=== PATIENT | female | born 2000 | race Asian ===

== ENCOUNTER → 2023-08-18 | Outpatient (CLI) | payer OTHER ==
[2023-08-18 17:23] LABS: PROGESTERONE 32.72 NG/ML
[2023-08-18 17:33] LABS: ESTRADIOL 99.4 PG/ML
== END ==
LOC: M LAB 16:26
PROVIDERS: ATTEND Obstetrics & Gynecology Reproductive Endocrinology
DX: Z31.41 Encounter for fertility testing (principal)

== ENCOUNTER → 2023-08-25 | Outpatient (CLI) | payer OTHER ==
[2023-08-25 08:19] LABS: HCG, SERUM QUANTITATIVE < 2.6 MIU/ML (<4.2)
[2023-08-25 08:23] LABS: PROGESTERONE 11.12 NG/ML
== END ==
LOC: M LAB 07:11
PROVIDERS: ATTEND Obstetrics & Gynecology Reproductive Endocrinology
DX: Z32.00 Encounter for pregnancy test, result unknown (principal)

== ENCOUNTER → 2023-11-17 | Outpatient (CLI) | payer OTHER ==
[2023-11-17 08:23] LABS: HCG, SERUM QUANTITATIVE 35.1 MIU/ML (<4.2)
[2023-11-17 08:27] LABS: PROGESTERONE 48.86 NG/ML
== END ==
LOC: M LAB 07:24
PROVIDERS: ATTEND Obstetrics & Gynecology Reproductive Endocrinology
DX: Z32.00 Encounter for pregnancy test, result unknown (principal)

== ENCOUNTER → 2023-11-19 | Outpatient (CLI) | payer OTHER ==
[2023-11-19 09:19] LABS: HCG, SERUM QUANTITATIVE 102.4 MIU/ML (<4.2)
[2023-11-19 09:22] LABS: THYROID STIMULATING HORMONE 2.685 uIU/ML (0.55-4.78)
[2023-11-19 09:23] LABS: ESTRADIOL 156.6 PG/ML; PROGESTERONE 46.11 NG/ML
== END ==
LOC: M LAB 07:39
PROVIDERS: ATTEND Obstetrics & Gynecology Reproductive Endocrinology
DX: Z32.01 Encounter for pregnancy test, result positive (principal)

== ENCOUNTER → 2023-11-23 | Outpatient (CLI) | payer OTHER ==
[2023-11-23 08:09] LABS: HCG, SERUM QUANTITATIVE 677.2 MIU/ML (<4.2)
[2023-11-23 08:13] LABS: ESTRADIOL 209.2 PG/ML
[2023-11-23 08:14] LABS: PROGESTERONE 43.31 NG/ML
== END ==
LOC: M LAB 07:16
PROVIDERS: ATTEND Obstetrics & Gynecology Reproductive Endocrinology
DX: O09.00 Supervision of pregnancy with history of infertility, unspecified trimester (principal)

== ENCOUNTER → 2023-11-30 | Outpatient (CLI) | payer OTHER ==
[~2023-11-30] MED LIST: ACET325C5 PO; IBUP-1022 PO; IBUP200T46 PO; MUCI1TAB16 PO
[2023-11-30 09:54] LABS: ESTRADIOL 299.6 PG/ML; PROGESTERONE 38.27 NG/ML
[2023-11-30 10:07] LABS: HCG, SERUM QUANTITATIVE 10111.6 MIU/ML (<4.2)
== END ==
LOC: M RAD 07:40 → MERGE 07:40
PROVIDERS: ATTEND Obstetrics & Gynecology Reproductive Endocrinology
DX: O09.01 Supervision of pregnancy with history of infertility, first trimester (principal); Z3A.01 Less than 8 weeks gestation of pregnancy

== ENCOUNTER → 2023-12-07 | Outpatient (CLI) | payer OTHER ==
[2023-12-07 09:16] LABS: ESTRADIOL 254.4 PG/ML; PROGESTERONE 31.55 NG/ML
[2023-12-07 09:25] LABS: HCG, SERUM QUANTITATIVE 33626.6 MIU/ML (<4.2)
== END ==
LOC: M RAD 07:53 → MERGE 08:30
PROVIDERS: ATTEND Obstetrics & Gynecology Reproductive Endocrinology
DX: Z32.01 Encounter for pregnancy test, result positive (principal)

== ENCOUNTER 2023-12-11 17:30 | Emergency (ER) | payer OTHER ==
[~2023-12-11] VITALS: Ht 172.7 cm; Wt 97.6 kg
[2023-12-11] MEDS ORDERED: SYNT25TA PO (17:40)
[2023-12-11] MEDS ORDERED: PRED5TA PO (17:40)
[2023-12-11] MEDS ORDERED: NALTREXONE PO (17:40)
[2023-12-11 18:06] LABS: BASO # 0.1 10^3/uL (0.0-0.2); BASO % 0.4 % (0.0-1.0); EOS # 0.1 10^3/uL (0.0-0.5); EOS % 0.8 % (0.0-3.0); HEMATOCRIT 39.4 % (36.0-47.0); HEMOGLOBIN 12.9 g/dl (12.0-15.5); LYMPH # 2.6 10^3/uL (1.5-5.0); LYMPH % 17.4 % (24.0-44.0); MEAN CORPUSCULAR HEMOGLOBIN 30.5 pg (27.0-33.0); MEAN CORPUSCULAR HGB CONC 32.7 g/dl (32.0-36.5); MEAN CORPUSCULAR VOLUME 93.1 fl (80.0-96.0); MONO # 1.2 10^3/uL (0.0-0.8); MONO % 8.4 % (2.0-8.0); NEUTROPHILS # 10.6 10^3/uL (1.5-8.5); NEUTROPHILS % 72.3 % (36.0-66.0); PLATELET COUNT, AUTOMATED 308 10^3/uL (150-450); RED BLOOD COUNT 4.23 10^6/uL (4.00-5.40); WHITE BLOOD COUNT 14.7 10^3/uL (4.0-10.0)
[2023-12-11 18:32] LABS: BLOOD UREA NITROGEN 11 MG/DL (9-23); CALCIUM LEVEL 9.6 MG/DL (8.5-10.1); CARBON DIOXIDE LEVEL 27 MMOL/L (20-31); CHLORIDE LEVEL 103 MMOL/L (98-107); CREATININE FOR GFR 0.78 MG/DL (0.55-1.30); GLOMERULAR FILTRATION RATE > 60.0 (>60); GLUCOSE, FASTING 112 MG/DL (60-100); POTASSIUM SERUM 4.4 MMOL/L (3.5-5.1); SODIUM LEVEL 136 MMOL/L (136-145)
[2023-12-11 18:48] LABS: HCG, SERUM QUANTITATIVE 56311.6 MIU/ML (<4.2)
[2023-12-11 19:55] VITALS: BP 107/69; TEMP 98.1; O2SAT 97
== END 2023-12-11 20:06 | disposition home or self-care (01) ==
LOC: M ED 17:30
DX: O46.91 Antepartum hemorrhage, unspecified, first trimester (principal); O99.111 Other diseases of the blood and blood-forming organs and certain disorders involving the immune mechanism complicating pregnancy, first trimester; Z3A.01 Less than 8 weeks gestation of pregnancy; Z79.899 Other long term (current) drug therapy

== ENCOUNTER 2024-01-27 09:18 | Emergency (ER) | payer OTHER ==
[~2024-01-27] VITALS: Ht 172.7 cm; Wt 99.3 kg
[~2024-01-27 09:18] MED LIST changes: +NALTREXONE PO; +PRED5TA PO; +SYNT25TA PO
[2024-01-27] MEDS ORDERED: MULTTAB20 PO (09:28)
[2024-01-27] MEDS ORDERED: ASPI81CH33 PO (09:28)
[2024-01-27 11:33] LABS: HCG, SERUM QUANTITATIVE 53581.6 MIU/ML (<4.2)
[2024-01-27 11:51] LABS: ALBUMIN 3.1 G/DL (3.2-5.2); ALKALINE PHOSPHATASE 40 U/L (35-104); ALT/SGPT 17 U/L (7.0-40); AST/SGOT 14 U/L (<34); BILIRUBIN,TOTAL 0.4 MG/DL (0.3-1.2); BLOOD UREA NITROGEN 5 MG/DL (9-23); CALCIUM LEVEL 9.4 MG/DL (8.5-10.1); CARBON DIOXIDE LEVEL 22 MMOL/L (20-31); CHLORIDE LEVEL 106 MMOL/L (98-107); CREATININE FOR GFR 0.53 MG/DL (0.55-1.30); GLOMERULAR FILTRATION RATE > 60.0 (>60); GLUCOSE, FASTING 93 MG/DL (60-100); POTASSIUM SERUM 4.2 MMOL/L (3.5-5.1); SODIUM LEVEL 138 MMOL/L (136-145); TOTAL PROTEIN 6.3 G/DL (5.7-8.2)
[2024-01-27 11:57] LABS: BASO % 0.3 % (0.0-1.0); EOS # 0.2 10^3/uL (0.0-0.5); EOS % 1.8 % (0.0-3.0); HEMATOCRIT 37.1 % (36.0-47.0); HEMOGLOBIN 12.2 g/dl (12.0-15.5); LYMPH # 1.8 10^3/uL (1.5-5.0); MEAN CORPUSCULAR HEMOGLOBIN 29.6 pg (27.0-33.0); MEAN CORPUSCULAR HGB CONC 32.9 g/dl (32.0-36.5); MONO # 0.9 10^3/uL (0.0-0.8); MONO % 7.7 % (2.0-8.0); NEUTROPHILS # 8.8 10^3/uL (1.5-8.5); NEUTROPHILS % 74.6 % (36.0-66.0); PLATELET COUNT, AUTOMATED 278 10^3/uL (150-450); RED BLOOD COUNT 4.12 10^6/uL (4.00-5.40); WHITE BLOOD COUNT 11.8 10^3/uL (4.0-10.0)
[2024-01-27 12:40] VITALS: BP 131/90; TEMP 98.1; O2SAT 98
== END 2024-01-27 12:42 | disposition home or self-care (01) ==
LOC: M ED 09:18
DX: O99.891 Other specified diseases and conditions complicating pregnancy (principal); R10.9 Unspecified abdominal pain; Z3A.14 14 weeks gestation of pregnancy; Z79.1 Long term (current) use of non-steroidal anti-inflammatories (NSAID); Z79.899 Other long term (current) drug therapy; Z79.810 Long term (current) use of selective estrogen receptor modulators (SERMs)

== ENCOUNTER 2024-03-06 09:52 | Emergency (ER) | payer OTHER ==
[~2024-03-06] VITALS: Ht 172.7 cm; Wt 101.7 kg
[~2024-03-06 09:52] MED LIST changes: +ASPI81CH33 PO; +MULTTAB20 PO
[2024-03-06] MEDS ORDERED: OSEL75CA PO (12:37)
[2024-03-06] MEDS: ACETAMINOPHEN 325 MG TAB PO ONE (12:53)
[2024-03-06 13:42] VITALS: BP 128/65; TEMP 100.2; O2SAT 96
[2024-03-06 14:21] VITALS: O2SAT 96
== END 2024-03-06 14:28 | disposition home or self-care (01) ==
LOC: M ED 09:52
DX: J09.X2 Influenza due to identified novel influenza A virus with other respiratory manifestations (principal); J20.9 Acute bronchitis, unspecified; Z79.1 Long term (current) use of non-steroidal anti-inflammatories (NSAID); Z79.810 Long term (current) use of selective estrogen receptor modulators (SERMs); Z79.899 Other long term (current) drug therapy

== ENCOUNTER 2024-04-12 18:31 | Emergency (ER) | payer OTHER ==
[~2024-04-12 18:31] MED LIST changes: +OSEL75CA PO
== END 2024-04-12 18:35 | disposition admitted as inpatient to this hospital (09) ==
LOC: M ED 18:31
DX: Z53.21 Procedure and treatment not carried out due to patient leaving prior to being seen by health care provider (principal)

== ENCOUNTER 2024-04-12 18:37 | Outpatient (CLI) | payer OTHER ==
[~2024-04-12] VITALS: Ht 172.7 cm; Wt 103.5 kg
[2024-04-12 19:01] VITALS: BP 141/70
[2024-04-12 19:52] VITALS: BP 115/59
== END 2024-04-12 19:55 | disposition home or self-care (01) ==
LOC: M LDO 18:37
PROVIDERS: ATTEND Advanced Practice Midwife
DX: O26.892 Other specified pregnancy related conditions, second trimester (principal); O09.812 Supervision of pregnancy resulting from assisted reproductive technology, second trimester; O99.282 Endocrine, nutritional and metabolic diseases complicating pregnancy, second trimester; R10.813 Right lower quadrant abdominal tenderness; E03.9 Hypothyroidism, unspecified; Z79.82 Long term (current) use of aspirin; Z79.890 Hormone replacement therapy; Z3A.25 25 weeks gestation of pregnancy
CPT/HCPCS: 59025; G0463

== ENCOUNTER 2024-10-24 09:48 | Emergency (ER) | payer OTHER ==
[~2024-10-24] VITALS: Ht 172.7 cm; Wt 99.8 kg
[~2024-10-24 09:48] MED LIST changes: -IBUP-1022 PO; +IBUP600T42 PO
[2024-10-24] MEDS ORDERED: DICL500C PO (11:13)
[2024-10-24 11:18] VITALS: BP 115/68; TEMP 97; O2SAT 98
== END 2024-10-24 11:19 | disposition home or self-care (01) ==
LOC: M ED 09:48
DX: N61.21 Granulomatous mastitis, right breast (principal); Z79.2 Long term (current) use of antibiotics; Z79.810 Long term (current) use of selective estrogen receptor modulators (SERMs)